=== PATIENT | female | born 1950 | race Asian ===

== ENCOUNTER 2018-05-04 21:55 | Emergency (ER) | payer MEDICARE, MEDICAID ==
[~2018-05-04] VITALS: Ht 172.7 cm; Wt 80.0 kg
[~2018-05-04 21:55] MED LIST: AMLO10TA80 PO; BENA20TA3 PO; HYDR-3513 PO; IMIP25TA6 PO; OXYB5TAB11 PO; RANI-467 PO
[2018-05-04] MEDS ORDERED: PANTOPRAZOLE SODIUM 40 MG/VIAL IV STA (22:38)
[2018-05-04] MEDS ORDERED: DICYCLOMINE 10 MG/5 ML ORAL SYR PO STA (22:38)
[2018-05-04] MEDS ORDERED: MAGNESIUM/ALUMINUM HYDROXIDE/SIMETHICONE 30ML UDC PO STA (22:38)
[2018-05-04] MEDS ORDERED: MORPHINE SULFATE 4 MG/ML CPJ (NOT FOR IM USE) IV STA (22:38)
[2018-05-04] MEDS ORDERED: VISCOUS LIDOCAINE 2% 15 ML UDC PO STA (22:38)
[2018-05-04] MEDS ORDERED: ONDANSETRON HCL 4MG/2ML VIAL IV STA (22:38)
[2018-05-04] MEDS ORDERED: SODIUM CHLORIDE 0.9% 1000ML BAG (SEPSIS BOLUS) IV ONE (22:45)
[2018-05-04 23:08] LABS: BASOPHILS % 0.7 % (0.0-2.0); EOSINOPHILS % 1.1 % (0.0-5.0); HEMATOCRIT. 45.5 % (36.0-48.0); LYMPHOCYTES % 32.6 % (20.0-50.0); MEAN CORPUSCULAR HEMOGLOBIN 28.8 pg (28.0-32.0); MEAN CORPUSCULAR VOLUME 87.2 fL (81.0-99.0); MEAN PLATELET VOLUME 8.8 fl (7.4-10.4); MONOCYTES % 9.1 % (2.0-8.0); NEUTROPHILS % 56.5 % (40.0-76.0); PLATELET 283 x1000/uL (130-400); RED BLOOD CELL COUNT 5.22 mill/uL (4.2-5.4); RED CELL DISTRIBUTION WIDTH 15.3 % (11.6-14.6)
[2018-05-04 23:15] LABS: CHLORIDE 104 mEq/L (98-107)
[2018-05-04 23:17] LABS: PROTHROMBIN TIME 10.9 sec (9.4-11.6)
[2018-05-04 23:19] LABS: ETHANOL BLOOD < 10 mg/dL
[2018-05-05] MEDS ORDERED: MORPHINE SULFATE 2 MG/ML CPJ (NOT FOR IM USE) IV STA (04:09)
[2018-05-05] MEDS ORDERED: ASPIRIN 325MG TABLET PO ONE (04:15)
[2018-05-05] MEDS ORDERED: AMLODIPINE 10MG TABLET PO SCH (16:45)
[2018-05-05] MEDS ORDERED: ATENOLOL 25MG TABLET PO SCH (17:00)
[2018-05-05 18:28] VITALS: BP 142/98
== END 2018-05-05 18:28 | disposition left against medical advice (07) ==
LOC: ER 21:55 → EDBEDREQ 05-05 05:25 → SUPCPDRO 05-05 14:54 → ER 05-05 18:28 → CANBEDREQ 05-05 19:35
DX: I10 Essential (primary) hypertension (principal); J02.9 Acute pharyngitis, unspecified; J44.9 Chronic obstructive pulmonary disease, unspecified; R11.2 Nausea with vomiting, unspecified; K76.0 Fatty (change of) liver, not elsewhere classified; K21.9 Gastro-esophageal reflux disease without esophagitis; M50.00 Cervical disc disorder with myelopathy, unspecified cervical region; F17.200 Nicotine dependence, unspecified, uncomplicated; R59.0 Localized enlarged lymph nodes; R49.0 Dysphonia; Z88.6 Allergy status to analgesic agent; Z91.011 Allergy to milk products
CPT/HCPCS: 36415; 71250; 74176; 80053; 83605; 83690; 83880; 84484; 85025; 85610; 87040; 93005; 96374; 96375; 96376; 99291; C9113; G0482; J2270; J2405; J7030; Z7610

== ENCOUNTER 2021-01-21 12:05 | Emergency (ER) | payer MEDICARE, MEDICAID ==
[~2021-01-21] VITALS: Ht 165.1 cm; Wt 64.0 kg
[~2021-01-21 12:05] MED LIST changes: +BENA20TA10 PO; -BENA20TA3 PO; -OXYB5TAB11 PO; +OXYB5TAB16 PO; -RANI-467 PO; +RANI-645 PO
[2021-01-21] MEDS ORDERED: SODIUM CHLORIDE 0.9% 1000ML BAG (SEPSIS BOLUS) IV ONE (12:30)
[2021-01-21 14:09] LABS: BASOPHILS % 0.8 % (0.0-2.0); EOSINOPHILS % 0.8 % (0.0-5.0); HEMATOCRIT. 41.9 % (36.0-48.0); HEMOGLOBIN. 13.9 g/dL (12.0-16.0); MEAN CORPUSCULAR HEMOGLOBIN 29.6 pg (28.0-32.0); MEAN CORPUSCULAR VOLUME 89.5 fL (81.0-99.0); MEAN PLATELET VOLUME 8.1 fl (7.4-10.4); MONOCYTES % 6.9 % (2.0-8.0); NEUTROPHILS % 63.5 % (40.0-76.0); PLATELET 372 x1000/uL (130-400); RED BLOOD CELL COUNT 4.69 mill/uL (4.2-5.4); RED CELL DISTRIBUTION WIDTH 15.7 % (11.6-14.6)
[2021-01-21 14:12] LABS: CHLORIDE 103 mEq/L (98-107)
[2021-01-21 14:24] LABS: CLARITY URINE CLEAR (CLEAR); COLOR URINE YELLOW (YELLOW); KETONES URINE NEGATIVE (NEGATIVE); LEUKOCYTE ESTERASE URINE NEGATIVE (NEGATIVE); NITRITE URINE NEGATIVE (NEGATIVE); OCCULT BLOOD URINE NEGATIVE (NEGATIVE); PROTEIN URINE NEGATIVE (NEGATIVE); SPECIFIC GRAVITY URINE 1.007 (1.005-1.030); UROBILINOGEN URINE 0.2 E.U./dL (0.2-1.0)
[2021-01-21] MEDS ORDERED: LEVOFLOXACIN 750MG PREMIX 150 ML IV ONE (14:45)
[2021-01-21 15:04] LABS: PARTIAL THROMBOPLASTIN TIME 25.4 sec (23.4-31.0)
[2021-01-21] MEDS ORDERED: ACETAMINOPHEN 325MG TABLET PO NR (20:45)
[2021-01-22] VITALS: BP 117/93
== END 2021-01-22 01:23 | disposition short-term general hospital (02) ==
LOC: ER 12:05
DX: A41.9 Sepsis, unspecified organism (principal); R65.20 Severe sepsis without septic shock; I95.9 Hypotension, unspecified; R55 Syncope and collapse; R42 Dizziness and giddiness; I10 Essential (primary) hypertension; K21.9 Gastro-esophageal reflux disease without esophagitis; Z88.6 Allergy status to analgesic agent; Z88.8 Allergy status to other drugs, medicaments and biological substances; Z79.899 Other long term (current) drug therapy; Z91.011 Allergy to milk products
CPT/HCPCS: 36415; 71045; 80053; 81003; 82962; 83605; 83880; 84145; 84484; 85025; 85610; 85730; 87040; 87086; 93005; 96361; 96365; 99291; J1956; J7030; 99285

== ENCOUNTER 2021-03-31 21:48 | Emergency (ER) | payer MEDICARE, MEDICAID ==
[~2021-03-31] VITALS: Ht 170.2 cm; Wt 73.0 kg
[2021-03-31] MEDS ORDERED: SODIUM CHLORIDE 0.9% 1,000 ML IV ONE (22:30)
[2021-03-31 22:49] LABS: BASOPHILS % 1.2 % (0.0-2.0); EOSINOPHILS % 1.5 % (0.0-5.0); HEMATOCRIT. 37.2 % (36.0-48.0); HEMOGLOBIN. 12.6 g/dL (12.0-16.0); LYMPHOCYTES % 51.3 % (20.0-50.0); MEAN CORPUSCULAR HEMOGLOBIN 30.6 pg (28.0-32.0); MEAN CORPUSCULAR VOLUME 90.1 fL (81.0-99.0); MEAN PLATELET VOLUME 8.4 fl (7.4-10.4); MONOCYTES % 9.3 % (2.0-8.0); NEUTROPHILS % 36.7 % (40.0-76.0); PLATELET 310 x1000/uL (130-400); RED BLOOD CELL COUNT 4.13 mill/uL (4.2-5.4); RED CELL DISTRIBUTION WIDTH 19.3 % (11.6-14.6)
[2021-03-31 22:53] LABS: CHLORIDE 106 mEq/L (98-107)
[2021-03-31 22:57] LABS: INR 1.2; PROTHROMBIN TIME 12.5 sec (9.6-11.0)
[2021-04-01 00:08] LABS: CLARITY URINE CLEAR (CLEAR); COLOR URINE DARK YELLOW (YELLOW); KETONES URINE NEGATIVE (NEGATIVE); LEUKOCYTE ESTERASE URINE NEGATIVE (NEGATIVE); NITRITE URINE NEGATIVE (NEGATIVE); OCCULT BLOOD URINE NEGATIVE (NEGATIVE); PH URINE 6.5 (4.5-8.0); PROTEIN URINE NEGATIVE (NEGATIVE); SPECIFIC GRAVITY URINE 1.017 (1.005-1.030)
[2021-04-01 02:05] VITALS: BP 114/71
== END 2021-04-01 02:06 | disposition short-term general hospital (02) ==
LOC: ER 21:48 → CANBEDREQ 04-01 02:28
DX: R55 Syncope and collapse (principal); E86.0 Dehydration; K21.9 Gastro-esophageal reflux disease without esophagitis; I10 Essential (primary) hypertension; Z88.6 Allergy status to analgesic agent; Z91.011 Allergy to milk products
CPT/HCPCS: 36415; 71045; 80053; 81003; 83605; 83880; 84145; 84484; 85025; 85610; 87040; 87086; 93005; 96360; 99285; J7030

== ENCOUNTER 2021-04-13 19:04 | Emergency (ER) | payer MEDICARE, MEDICAID ==
[~2021-04-13] VITALS: Ht 167.6 cm; Wt 50.0 kg
[2021-04-13 20:28] LABS: BASOPHILS % 0.6 % (0.0-2.0); EOSINOPHILS % 1.1 % (0.0-5.0); HEMATOCRIT. 33.9 % (36.0-48.0); HEMOGLOBIN. 11.5 g/dL (12.0-16.0); LYMPHOCYTES % 38.7 % (20.0-50.0); MEAN CORPUSCULAR HEMOGLOBIN 30.7 pg (28.0-32.0); MEAN CORPUSCULAR VOLUME 90.3 fL (81.0-99.0); MEAN PLATELET VOLUME 7.3 fl (7.4-10.4); MONOCYTES % 10.2 % (2.0-8.0); NEUTROPHILS % 49.4 % (40.0-76.0); PLATELET 372 x1000/uL (130-400); RED BLOOD CELL COUNT 3.76 mill/uL (4.2-5.4); RED CELL DISTRIBUTION WIDTH 20.4 % (11.6-14.6)
[2021-04-13 20:33] LABS: CHLORIDE 114 mEq/L (98-107)
[2021-04-13 21:50] LABS: CLARITY URINE TURBID (CLEAR); COLOR URINE YELLOW (YELLOW); KETONES URINE NEGATIVE (NEGATIVE); LEUKOCYTE ESTERASE URINE 2+ (NEGATIVE); NITRITE URINE POSITIVE (NEGATIVE); OCCULT BLOOD URINE 1+ (NEGATIVE); PH URINE 5.5 (4.5-8.0); PROTEIN URINE TRACE (NEGATIVE); SPECIFIC GRAVITY URINE 1.011 (1.005-1.030); UROBILINOGEN URINE 0.2 E.U./dL (0.2-1.0)
[2021-04-13] MEDS ORDERED: DEXT 5%/0.45% NACL KCL 20MEQ/L 1,000 ML IV NR (23:30)
[2021-04-13] MEDS ORDERED: LEVOFLOXACIN 500MG PREMIX 100 ML IV NR (23:30)
[2021-04-14 06:50] VITALS: BP 146/95
== END 2021-04-14 07:06 | disposition short-term general hospital (02) ==
LOC: ER 19:04
DX: N39.0 Urinary tract infection, site not specified (principal); R55 Syncope and collapse; E86.0 Dehydration; E87.0 Hyperosmolality and hypernatremia; E16.2 Hypoglycemia, unspecified; K21.9 Gastro-esophageal reflux disease without esophagitis; I10 Essential (primary) hypertension; I95.9 Hypotension, unspecified; Z88.6 Allergy status to analgesic agent; Z91.011 Allergy to milk products
CPT/HCPCS: 36415; 71045; 80053; 81003; 82962; 83880; 84484; 85025; 87077; 87086; 87186; 93005; 96374; 99285; J1956

== ENCOUNTER 2023-07-15 15:10 | Emergency (ER) | payer MEDICARE, MEDICAID ==
[~2023-07-15] VITALS: Ht 172.7 cm; Wt 66.0 kg
[~2023-07-15 15:10] MED LIST changes: +BENA-8 PO; -BENA20TA10 PO
[2023-07-15 15:26] VITALS: O2SAT 100
[2023-07-15 17:00] VITALS: BP 133/97; PULSE 107; RESP 19; TEMP 98.6
[2023-07-15] MEDS ORDERED: KETOROLAC 60MG/2ML VIAL IM ONE (17:00)
[2023-07-15] MEDS ORDERED: MORPHINE SULFATE 10 MG/ML CPJ IM ONE (17:00)
[2023-07-15] MEDS ORDERED: DIAZEPAM 2 MG TABLET PO ONE (17:00)
[2023-07-15] MEDS ORDERED: ACETAMINOPHEN 325MG TABLET PO ONE (17:00)
== END 2023-07-15 18:05 | disposition left against medical advice (07) ==
LOC: ER 17:14
DX: M79.10 Myalgia, unspecified site (principal); I10 Essential (primary) hypertension; K21.9 Gastro-esophageal reflux disease without esophagitis; Z98.890 Other specified postprocedural states; Z88.8 Allergy status to other drugs, medicaments and biological substances; Z91.011 Allergy to milk products
CPT/HCPCS: 99283; 96372; J2270

== ENCOUNTER 2024-02-02 12:26 | Emergency (ER) | payer BC, MEDICAID ==
[~2024-02-02] VITALS: Ht 172.7 cm; Wt 77.0 kg
[~2024-02-02 12:26] MED LIST changes: -OXYB5TAB16 PO; +OXYB5TAB21 PO
[2024-02-02 12:30] VITALS: O2SAT 99
[2024-02-02 14:12] LABS: BASOPHILS % 0.8 % (0.0-2.0); EOSINOPHILS % 1.2 % (0.0-5.0); HEMATOCRIT. 40.9 % (36.0-48.0); HEMOGLOBIN. 13.4 g/dL (12.0-16.0); LYMPHOCYTES % 41.3 % (20.0-50.0); MEAN CORPUSCULAR HEMOGLOBIN 28.2 pg (28.0-32.0); MEAN CORPUSCULAR HGB CONC 32.8 g/dL (31.0-37.0); MEAN PLATELET VOLUME 8.3 fl (7.4-10.4); MONOCYTES % 5.2 % (2.0-8.0); NEUTROPHILS % 51.5 % (40.0-76.0); PLATELET 342 x1000/uL (130-400); RED BLOOD CELL COUNT 4.75 mill/uL (4.2-5.4); RED CELL DISTRIBUTION WIDTH 14.6 % (11.6-14.6); WHITE BLOOD COUNT 6.3 x1000/uL (4.5-11.0)
[2024-02-02 14:27] LABS: ALANINE AMINOTRANSFERASE 65 IU/L (10-49); ALBUMIN 4.4 g/dL (3.2-4.8); ASPARTATE AMINOTRANSFERASE 116 IU/L (<34); BILIRUBIN TOTAL 0.8 mg/dL (0.1-1.0); CALCIUM 8.6 mg/dL (8.7-10.4); CARBON DIOXIDE 25 mEq/L (21-32); CHLORIDE 106 mEq/L (98-107); CREATININE 0.6 mg/dL (0.6-1.0); GLUCOSE 103 mg/dL (70-105); POTASSIUM 3.9 mEq/L (3.5-5.1); PROTEIN TOTAL 7.6 g/dL (6.0-8.3); SODIUM 136 mEq/L (136-145); T4 FREE 1.42 ng/dL (0.89-1.76); THYROID STIMULATING HORMONE 0.43 uIU/mL (0.55-4.78); UREA NITROGEN BLOOD 9 mg/dL (9-23)
[2024-02-02 17:35] VITALS: BP 133/81; PULSE 89; RESP 18; TEMP 98.2
== END 2024-02-02 19:04 | disposition home or self-care (01) ==
LOC: ER 12:26 → CANBEDREQ 22:54
DX: R53.1 Weakness (principal); M79.604 Pain in right leg; M79.605 Pain in left leg; R29.6 Repeated falls; K21.9 Gastro-esophageal reflux disease without esophagitis; I95.9 Hypotension, unspecified; Z85.9 Personal history of malignant neoplasm, unspecified; Z79.899 Other long term (current) drug therapy
CPT/HCPCS: 36415; 80053; 83735; 84439; 84443; 85025; 93005; 99284